=== PATIENT | female | born 1955 | race Caucasian/White ===

== ENCOUNTER 2016-10-18 11:09 | Emergency (ER) | payer MEDICAID ==
[2016-10-18] MEDS ORDERED: AMOX/CLAV 875 MG/125 MG TABLET PO STA (12:10)
[2016-10-18] MEDS ORDERED: TETANUS/DIPHTHERIA/PERTUSSIS 0.5 ML SYRINGE IM ONE ×2 (12:10→12:17)
[2016-10-18] MEDS ORDERED: AMOX/CLAV 875 MG/125 MG TABLET PO ONE (12:17)
== END 2016-10-18 12:42 | disposition home or self-care (01) ==
DX: S61.452A Open bite of left hand, initial encounter (principal); W54.0XXA Bitten by dog, initial encounter; Z23 Encounter for immunization; R03.0 Elevated blood-pressure reading, without diagnosis of hypertension; F17.200 Nicotine dependence, unspecified, uncomplicated
CPT/HCPCS: 90471; 90715; 99283; A9270

== ENCOUNTER 2019-12-26 09:08 | Outpatient (CLI) | payer MEDICAID | END 2019-12-26 09:09 | disposition home or self-care (01) | LOC: COV 09:08 | PROVIDERS: ATTEND Family Medicine | DX: R50.9 Fever, unspecified (principal); R05 Cough; R06.02 Shortness of breath; M79.10 Myalgia, unspecified site; R53.83 Other fatigue; R09.81 Nasal congestion; Z20.828 Contact with and (suspected) exposure to other viral communicable diseases ==

== ENCOUNTER 2020-04-28 08:42 | Emergency (ER) | payer MEDICAID ==
--- NOTE | 2020-04-28 08:51 | ED Physician Documentation ---
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, Tubal ligation, Hysterectomy - Present Medications Home Medications: Ambulatory Orders Medication Instructions Recorded Confirmed Amox/Clav 875/125 [Augmentin] 1 each PO Q12H #14 tablet 10/18/16 Albuterol Sulf [Ventolin Hfa 1 - 2 puffs INH Q4HR PRN #1 inhaler 12/29/19 Inhaler] predniSONE [Deltasone] 10 mg PO [id number] #42 tab 12/29/19 - Allergies Allergies/Adverse Reactions: Allergies Allergy/AdvReac Type Severity Reaction Status Date / Time droperidol Allergy Hallucinati Verified 04/28/20 08:46 ons sulfamethoxazole Allergy Edema Verified 12/29/19 08:49 [From ] trimethoprim [From ] Allergy Edema Verified 12/29/19 08:49 - Social History Does the pt smoke?: Yes Smoking Status: Current every day smoker Does the pt have substance abuse?: Yes - Immunizations Immunizations are current?: No Immunizations: TDAP >10years/unknown Results - Vitals Vitals: Oxygen O2 Source Room air
--- NOTE | 2020-04-28 08:59 | ED Physician Documentation ---
PD HPI NVD - Stated complaint Stated Complaint: N/V COUGHING - Chief complaint Chief Complaint: Abd Pain - History obtained from History obtained from: Patient - History of Present Illness Timing - onset: How many weeks ago (2) Timing - duration: Weeks (2) Timing - details: Abrupt onset, Still present (she states she had cramps and diarrhea over a dozen times the first day of it, which tapered to 3-4 times daily soft to watery without mucous. Odorous the first couple days, now not particularly overly odorous. No blood. Has dark color after Pepto.) Associated symptoms: Abdominal pain (intermittent generally crampy, mostly transverse upper and left.). No: Fever, Melena (but dark color after using Pepto), Hematochezia, Near syncope / syncope Contributing factors: No: Sick contact, Bad food, Travel, Recent antibiotics Improved by: No: Eating, Vomiting Worsened by: Eating Similar symptoms before: Has not had sx before Recently seen: Not recently seen Review of Systems Constitutional: reports: Myalgias. denies: Fever, Chills Nose: denies: Rhinorrhea / runny nose, Congestion Throat: reports: Sore throat (the past couple days) Respiratory: reports: Cough (mild cough the past couple of days.) GI: reports: Abdominal Pain, Nausea, Diarrhea. denies: Abdominal Swelling, Vomiting, Constipation, Hematemesis, Bloody / black stool Skin: denies: Rash, Lesions Neurologic: reports: Generalized weakness, Headache (intermittent pressure headaches.). denies: Focal weakness, Numbness, Near syncope PD PAST MEDICAL HISTORY - Past Medical History Cardiovascular: Hypertension (states is usually at cusp of HTN but not been on meds previously. She does get headaches intermittently. No edema. No CP. 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, Tubal ligation, Hysterectomy - Present Medications Home Medications: Ambulatory Orders Medication Instructions Recorded Confirmed Amox/Clav 875/125 [Augmentin] 1 each PO Q12H #14 tablet 10/18/16 Albuterol Sulf [Ventolin Hfa 1 - 2 puffs INH Q4HR PRN #1 inhaler 12/29/19 Inhaler] predniSONE [Deltasone] 10 mg PO [id number] #42 tab 08/01/20 Albuterol Sulf [Ventolin Hfa 1 - 2 puffs INH Q4HR PRN #1 inhaler 04/28/20 Inhaler] Azithromycin [Zithromax] 0 mg PO DAILY #6 tablet 04/28/20 Diphenoxylate/Atropine [Lomotil] 1 each PO QID #16 tablet 04/28/20 Hydrocodone/Acetaminophen [[place] 1 each PO Q6H PRN #15 tablet 04/28/20 5-325 Tablet] L.acid/L.casei/B.bif/B.kyle/Fos 1 each PO BID #20 capsule 04/28/20 [Probiotic Blend Capsule] Losartan [Cozaar] 50 mg PO DAILY #30 tablet 04/28/20 Ondansetron Odt [Zofran] 4 mg TL Q6H PRN #15 tablet 04/28/20 - Allergies Allergies/Adverse Reactions: Allergies Allergy/AdvReac Type Severity Reaction Status Date / Time droperidol Allergy Hallucinati Verified 04/28/20 08:46 ons sulfamethoxazole Allergy Edema Verified 12/29/19 08:49 [From Janra] trimethoprim [From ] Allergy Edema Verified 12/29/19 08:49 - Social History Does the pt smoke?: Yes Smoking Status: Current every day smoker Does the pt have substance abuse?: Yes - Immunizations Immunizations are current?: No Immunizations: TDAP >10years/unknown PD ED PE NORMAL - Vitals Vital signs reviewed: Yes - General General: Alert and oriented X 3, Well developed/nourished, Other (intermittently in pain, then seems comfortable. ) - HEENT HEENT: Pharynx benign - Neck Neck: Supple, no meningeal sign, No adenopathy - Cardiac Cardiac: RRR, No murmur - Respiratory Respiratory: Clear bilaterally - Abdomen Abdomen: Normal bowel sounds, Soft, Non distended, No organomegaly, Other - Back Back: No CVA TTP - Derm Derm: Normal color, Warm and dry, No rash - Extremities Extremities: No edema, No calf tenderness / cord - Neuro Neuro: Alert and oriented X 3, No motor deficit, Normal speech Results - Vitals Vitals: Vital Signs - 24 hr 04/28/20 04/28/20 04/28/20 08:46 09:11 09:58 Temperature 36.9 C Heart Rate 74 72 64 Respiratory 18 16 16 Rate Blood Pressure 180/78 H 182/94 H 156/86 H O2 Saturation 95 98 93 04/28/20 04/28/20 11:17 12:03 Temperature 36.5 C 36.9 C Heart Rate 70 75 Respiratory 18 16 Rate Blood Pressure 181/95 H 174/92 H O2 Saturation 98 95 Oxygen O2 Source Room air - Labs Labs: Laboratory Tests 04/28/20 04/28/20 04/28/20 09:37 09:37 09:37 WBC 8.2 RBC 4.93 Hgb 14.8 Hct 44.0 MCV 89.2 MCH 30.0 MCHC 33.6 RDW 11.9 L Plt Count 150 MPV 11.6 H Neut # (Auto) 6.2 Lymph # (Auto) 1.6 [place] # (Auto) 0.3 Eos # (Auto) 0.0 Baso # (Auto) 0.0 Absolute Nucleated RBC 0.00 Nucleated RBC % 0.0 ESR 4 Sodium Potassium Chloride Carbon Dioxide Anion Gap BUN Creatinine Estimated GFR (MDRD) Glucose Calcium Magnesium Total Bilirubin AST ALT Alkaline Phosphatase C-Reactive Protein Total Protein Albumin Globulin Albumin/Globulin Ratio TSH 2.76 Urine Color Urine Clarity Urine pH Ur Specific [place] Urine Protein Urine Glucose (UA) Urine Ketones Urine Occult Blood Urine Nitrite Urine Bilirubin Urine Urobilinogen Ur Leukocyte Esterase Urine RBC Urine WBC Ur Squamous Epith Cells Urine Bacteria Ur Microscopic Review Urine Culture Comments Stl C. diff Tox B Gene 04/28/20 04/28/20 04/28/20 09:37 09:40 09:40 WBC RBC Hgb Hct MCV MCH MCHC RDW Plt Count MPV Neut # (Auto) Lymph # (Auto) [place] # (Auto) Eos # (Auto) Baso # (Auto) Absolute Nucleated RBC Nucleated RBC % ESR Sodium 142 Potassium 4.1 Chloride 106 Carbon Dioxide 22 Anion Gap 14.0 H BUN 17 Creatinine 0.7 Estimated GFR (MDRD) 85 L Glucose 108 H Calcium 9.4 Magnesium 2.1 Total Bilirubin 0.7 AST 17 ALT 19 Alkaline Phosphatase 55 C-Reactive Protein < 1.0 Total Protein 7.5 Albumin 4.3 Globulin 3.2 Albumin/Globulin Ratio 1.3 TSH Urine Color YELLOW Urine Clarity CLEAR Urine pH 6.0 Ur Specific [place] 1.015 Urine Protein NEGATIVE Urine Glucose (UA) NEGATIVE Urine Ketones NEGATIVE Urine Occult Blood SMALL H Urine Nitrite NEGATIVE Urine Bilirubin NEGATIVE Urine Urobilinogen 0.2 (NORMAL) Ur Leukocyte Esterase NEGATIVE Urine RBC 0-5 Urine WBC 0-3 Ur Squamous Epith Cells MOD Squamous H Urine Bacteria Rare Ur Microscopic Review INDICATED Urine Culture Comments NOT INDICATED Stl C. diff Tox B Gene NEGATIVE PD MEDICAL DECISION MAKING - ED course Complexity details: reviewed results, considered differential, d/w patient Departure - Departure Disposition: 01 Home, Self Care Clinical Impression: Acute diarrhea High blood pressure Qualifiers: Hypertension type: unspecified Qualified Code(s): I10 - Essential (primary) hypertension Dyspnea Qualifiers: Dyspnea type: shortness of breath Qualified Code(s): R06.02 - Shortness of breath Condition: Stable Record reviewed to determine appropriate education?: Yes Instructions: ED Diet Vomiting Diarrhea Follow-Up: [facility] [Provider Group] Prescriptions: Albuterol Sulf [Ventolin Hfa Inhaler] 1 - 2 puffs INH Q4HR PRN #1 inhaler PRN Reason: Shortness Of Air/Wheezing Losartan [Cozaar] 50 mg PO DAILY #30 tablet Diphenoxylate/Atropine [Lomotil] 1 each PO QID #16 tablet Hydrocodone/Acetaminophen [[place] 5-325 Tablet] 1 each PO Q6H PRN #15 tablet PRN Reason: Pain L.acid/L.casei/B.bif/B.kyle/Fos [Probiotic Blend Capsule] 1 each PO BID #20 capsule Azithromycin [Zithromax] 0 mg PO DAILY #6 tablet Ondansetron Odt [Zofran] 4 mg TL Q6H PRN #15 tablet PRN Reason: Nausea / Vomiting Comments: Your blood pressure was elevated here initially and did come down to moderate. Since that does tend to be on the higher end of normal for you in the past, it could make sense to start a low-dose blood pressure medicine. This would be unrelated to your current diarrhea of course. For your breathing, I would suggest using the albuterol inhaler 3-4 times a day and see how you do with that as its more likely related to environmental conditions. For the diarrhea, stay well-hydrated, use antidiarrhea medicines and probiotics over the next several days to a week. Ondansetron if needed for nausea. Hydrocodone as needed for worse cramps. See how the stool culture results are over the next couple of days. If the show a specific organism, will call you to target the antibiotic choice for that. If the cultures are negative, and you are still having moderate symptoms not improved with the probiotic and antidiarrheal, and you could empirically try the azithromycin antibiotic in case of a false negative culture result. Follow-up with primary care as planned in April. Return if worsening. Discharge Date/Time: 04/28/20 12:14
[2020-04-28] MEDS ORDERED: KETOROLAC 15 MG/ML VIAL IVP STA (09:23)
[2020-04-28] MEDS ORDERED: SODIUM CHLORIDE 0.9% 1,000 ML IV STA (09:23)
[2020-04-28] MEDS ORDERED: ONDANSETRON 4 MG/2 ML VIAL IVP STA (09:23)
[2020-04-28 09:41] LABS: BASOPHILS % (AUTO) 0.4 %; EOSINOPHILS % (AUTO) 0.2 %; HGB - HEMOGLOBIN 14.8 g/dL (12.0-16.0); LYMPHOCYTES # (AUTO) 1.6 10^3/uL (1.5-3.5); LYMPHOCYTES % (AUTO) 19.9 %; MEAN CORPUSCULAR HGB CONC 33.6 g/dL (32.0-36.0); MEAN CORPUSCULAR VOLUME 89.2 fL (81.0-99.0); MEAN PLATELET VOLUME 11.6 fL (7.9-10.8); MONOCYTES # (AUTO) 0.3 10^3/uL (0.0-1.0); MONOCYTES % (AUTO) 4.1 %; NEUTROPHILS # (AUTO) 6.2 10^3/uL (1.5-6.6); PLT - PLATELET COUNT 150 10^3/uL (130-450); RED BLOOD COUNT 4.93 10^6/uL (4.20-5.40); RED CELL DISTRIBUTION WIDTH 11.9 % (12.0-15.0); WHITE BLOOD COUNT 8.2 x10^3/uL (4.8-10.8)
[2020-04-28 09:59] LABS: ALBUMIN 4.3 g/dL (3.2-5.5); ALBUMIN/GLOBULIN RATIO 1.3 (1.0-2.2); ALKALINE PHOSPHATASE 55 IU/L (42-121); ALT ALANINE AMINOTRANSFERASE 19 IU/L (10-60); AST ASPARTATE AMINOTRANSFERASE 17 IU/L (10-42); BILIRUBIN,TOTAL 0.7 mg/dL (0.2-1.0); BUN - BLOOD UREA NITROGEN 17 mg/dL (6-20); CALCIUM 9.4 mg/dL (8.5-10.3); CARBON DIOXIDE - CO2 22 mmol/L (21-32); CHLORIDE 106 mmol/L (101-111); CREATININE 0.7 mg/dL (0.4-1.0); GLUCOSE 108 mg/dL (70-100); MAGNESIUM 2.1 mg/dL (1.7-2.8); SODIUM 142 mmol/L (135-145); TOTAL PROTEIN 7.5 g/dL (6.7-8.2)
[2020-04-28 10:00] LABS: BILIRUBIN,URINE NEGATIVE (NEGATIVE); GLUCOSE, URINE (UA) NEGATIVE (NEGATIVE); KETONES,URINE (UA) NEGATIVE (NEGATIVE); LEUKOCYTE ESTERASE, URINE NEGATIVE (NEGATIVE); NITRITE,URINE NEGATIVE (NEGATIVE); OCCULT BLOOD,URINE SMALL (NEGATIVE); PROTEIN,URINE NEGATIVE (NEGATIVE); UROBILINOGEN,URINE 0.2 (NORMAL) E.U./dL (NORMAL)
[2020-04-28 10:02] LABS: CLARITY,URINE CLEAR (CLEAR)
[2020-04-28 10:11] LABS: BACTERIA,URINE Rare /HPF (None Seen); RBC,URINE 0-5 /HPF (0-5); SQUAMOUS EPITHELIAL CELL,UR MOD Squamous (<= Few)
[2020-04-28 11:04] LABS: CRP - C-REACTIVE PROTEIN < 1.0 mg/dL (0-1.0)
[2020-04-28] MEDS ORDERED: DICYCLOMINE 10 MG CAPSULE PO STA (11:18)
[2020-04-28] MEDS ORDERED: ACETAMINOPHEN 325 MG TABLET PO STA (11:18)
[2020-04-28 12:06] VITALS: BP 174/92
== END 2020-04-28 12:14 | disposition home or self-care (01) ==
LOC: ED 08:42
DX: R19.7 Diarrhea, unspecified (principal); R10.9 Unspecified abdominal pain; R11.0 Nausea; I10 Essential (primary) hypertension; J44.9 Chronic obstructive pulmonary disease, unspecified; F17.200 Nicotine dependence, unspecified, uncomplicated
CPT/HCPCS: 36415; 80053; 81001; 81599; 83735; 84443; 85025; 85651; 86140; 87493; 93005; 96361; 96374; 96375; 99284; 99285; A9270; 81003; 87045; 87046; 87086

== ENCOUNTER 2020-05-08 11:54 | Outpatient (CLI) | payer MEDICAID ==
[2020-05-08] MEDS ORDERED: IOVERSOL 320 50 ML VIAL ONE (12:06)
[2020-05-08] MEDS ORDERED: IOVERSOL 320 100 ML VIAL IVP ONE ×2 (12:06→14:28)
--- NOTE | 2020-05-08 13:50 | CT Report ---
PROCEDURE: Abdomen/Pelvis W INDICATIONS: ABD PAIN CONTRAST: IV CONTRAST: Optiray 320 ml: 100 PO CONTRAST: Optiray 320 ml50 TECHNIQUE: After the administration of intravenous contrast, 5 mm thick sections acquired from the diaphragms to the symphysis. 5 mm thick coronal and sagittal reformats were acquired. For radiation dose reducti on, the following was used: automated exposure control, adjustment of mA and/or kV according to barbara ent size. COMPARISON: None. FINDINGS: Image quality: Excellent. ABDOMEN: Lung bases: Lung bases are clear. Heart size is normal. Solid organs: Liver and spleen are normal in size and enhancement. Gallbladder is surgically absent . Biliary system is non dilated. Pancreas enhances normally. No adrenal nodules. Kidneys demonstr ate normal size and enhancement, without hydronephrosis. Peritoneum and bowel: Bowel loops demonstrate normal wall thickness and caliber. No free fluid or a ir. Large amount of fecal debris. Nodes and vessels: No retroperitoneal or mesenteric adenopathy by size criteria. Aorta and inferior vena cava are normal in size. Miscellaneous: No ventral hernias. PELVIS: Genitourinary: Bladder wall thickness is normal. Uterus is surgically absent. Miscellaneous: Small bilateral inguinal hernias containing fat. Bones: No suspicious bony lesions. No vertebral body compression fractures. Lumbar degenerative ch kassandra with at least moderate canal stenosis at L4-L5. IMPRESSION: 1. No evidence acute abdominal process. 2. Remote cholecystectomy and hysterectomy. 3. Large fecal load. 4. Small bilateral inguinal hernias containing fat. 5. Lumbar degenerative change with canal stenosis at L4-L5. Reviewed by: Manolo Pozo MD on 05/08/2020 1:48 PM [facility] Approved by: Manolo Pozo MD on 05/08/2020 1:48 PM PST Station ID: [id number]
[2020-05-08] MEDS ORDERED: IOVERSOL 320 50 ML VIAL PO ONE (14:28)
== END 2020-05-08 11:55 | disposition home or self-care (01) ==
LOC: DI 11:54
PROVIDERS: ATTEND Internal Medicine
DX: R10.9 Unspecified abdominal pain (principal); Z90.49 Acquired absence of other specified parts of digestive tract; Z90.710 Acquired absence of both cervix and uterus; K40.20 Bilateral inguinal hernia, without obstruction or gangrene, not specified as recurrent; M51.36 Other intervertebral disc degeneration, lumbar region; M48.061 Spinal stenosis, lumbar region without neurogenic claudication
CPT/HCPCS: 36415; 74177; 80053; 80074; 82728; 83690; 85025; Q9967; 81599

== ENCOUNTER 2020-05-08 15:16 | Outpatient (CLI) | payer MEDICAID ==
[2020-05-08 20:03] LABS: BASOPHILS % (AUTO) 0.5 %; EOSINOPHILS % (AUTO) 0.4 %; HGB - HEMOGLOBIN 14.1 g/dL (12.0-16.0); LYMPHOCYTES # (AUTO) 3.6 10^3/uL (1.5-3.5); LYMPHOCYTES % (AUTO) 44.1 %; MEAN CORPUSCULAR HEMOGLOBIN 30.2 pg (27.0-31.0); MEAN CORPUSCULAR VOLUME 91.4 fL (81.0-99.0); MEAN PLATELET VOLUME 12.4 fL (7.9-10.8); MONOCYTES # (AUTO) 0.3 10^3/uL (0.0-1.0); MONOCYTES % (AUTO) 3.4 %; NEUTROPHILS # (AUTO) 4.2 10^3/uL (1.5-6.6); NEUTROPHILS % (AUTO) 51.4 %; PLT - PLATELET COUNT 172 10^3/uL (130-450); RED BLOOD COUNT 4.67 10^6/uL (4.20-5.40); RED CELL DISTRIBUTION WIDTH 11.9 % (12.0-15.0); WHITE BLOOD COUNT 8.1 x10^3/uL (4.8-10.8)
[2020-05-08 20:11] LABS: ALBUMIN 4.3 g/dL (3.2-5.5); ALBUMIN/GLOBULIN RATIO 1.5 (1.0-2.2); BILIRUBIN,TOTAL 0.8 mg/dL (0.2-1.0); CALCIUM 9.3 mg/dL (8.5-10.3); CREATININE 0.6 mg/dL (0.4-1.0); TOTAL PROTEIN 7.2 g/dL (6.7-8.2)
== END 2020-05-08 15:17 | disposition home or self-care (01) ==
LOC: LAB.S 15:16
PROVIDERS: ATTEND Internal Medicine
DX: R10.9 Unspecified abdominal pain (principal)
CPT/HCPCS: 36415; 80053; 81599; 82728; 83690; 85025

== ENCOUNTER 2020-06-20 14:52 | Outpatient (CLI) | payer MEDICAID | END 2020-06-20 14:53 | disposition home or self-care (01) | LOC: COV 14:52 | PROVIDERS: ATTEND Surgery | DX: Z01.812 Encounter for preprocedural laboratory examination (principal); K21.9 Gastro-esophageal reflux disease without esophagitis; R10.13 Epigastric pain; R13.10 Dysphagia, unspecified; Z12.11 Encounter for screening for malignant neoplasm of colon; Z20.822 Contact with and (suspected) exposure to COVID-19 ==

== ENCOUNTER 2020-06-25 08:43 | Day surgery (SDC) | payer MEDICAID ==
[2020-06-25] MEDS ORDERED: LACTATED RINGERS 1,000 ML IV ONE ×2 (09:26→10:50)
[2020-06-25] MEDS ORDERED: MIDAZOLAM 2 MG/2 ML VIAL ONE ×4 (09:54→10:40)
[2020-06-25] MEDS ORDERED: fentaNYL 250 MCG/5 ML VIAL ONE (09:54)
[2020-06-25] MEDS ORDERED: LIDO GARGLE 30 ML BOTTLE ONE (09:56)
[2020-06-25] MEDS ORDERED: LIDO GARGLE 30 ML BOTTLE PO ONE (09:57)
[2020-06-25 11:16] VITALS: BP 146/81
== END 2020-06-25 08:44 | disposition home or self-care (01) ==
LOC: SDS 08:43
PROVIDERS: ATTEND Surgery
PROC: 0DB48ZX Excision of Esophagogastric Junction, Via Natural or Artificial Opening Endoscopic, Diagnostic (ICD-10-PCS; 2020-06-25)
PROC: 0DB68ZX Excision of Stomach, Via Natural or Artificial Opening Endoscopic, Diagnostic (ICD-10-PCS; 2020-06-25)
PROC: 0DBM8ZZ Excision of Descending Colon, Via Natural or Artificial Opening Endoscopic (ICD-10-PCS; principal; 2020-06-25 09:45)
PROC: 0DBN8ZZ Excision of Sigmoid Colon, Via Natural or Artificial Opening Endoscopic (ICD-10-PCS; 2020-06-25 09:45)
DX: D12.4 Benign neoplasm of descending colon (principal); K63.5 Polyp of colon; K29.50 Unspecified chronic gastritis without bleeding; K21.00 Gastro-esophageal reflux disease with esophagitis, without bleeding; J44.9 Chronic obstructive pulmonary disease, unspecified; F41.9 Anxiety disorder, unspecified; Z79.51 Long term (current) use of inhaled steroids; Z79.899 Other long term (current) drug therapy; Z87.891 Personal history of nicotine dependence
CPT/HCPCS: 43239; 45380; A9270; J3010; J7120

== ENCOUNTER 2020-11-09 12:30 | Outpatient (CLI) | payer MEDICAID | END 2020-11-09 23:59 | disposition home or self-care (01) | LOC: LAB.S 12:30 | PROVIDERS: ATTEND Physician Assistant Medical | DX: R30.0 Dysuria (principal) | CPT/HCPCS: 87086 ==

== ENCOUNTER 2020-12-29 08:00 | Outpatient (CLI) | payer MEDICAID ==
--- NOTE | 2020-12-29 11:34 | XRAY Report ---
PROCEDURE: Lumbar Spine 2 View INDICATIONS: BACK PAIN TECHNIQUE: 3 views of the lumbar spine were acquired. COMPARISON: CT abdomen/pelvis 05/08/2020 FINDINGS: Bones: 5 [id number] vertebrae are present. There is normal bony alignment. No vertebral body compression fractures. No suspicious bony lesions. Soft tissues: Overlying bowel gas pattern is normal. No suspicious soft tissue calcifications. IMPRESSION: There is a generalized degenerative disc disease pattern, with relative sparing at the L 1-L2 level. No subluxation is associated, no compression fracture is seen. Facet osteoarthritis becom es more prominent from L3 through S1, with likelihood of spinal and foraminal stenosis at L4-5 and es pecially L5-S1. No trauma found. Reviewed by: Devin Barney MD on 12/29/2020 11:33 AM PDT Approved by: Devin Barney MD on 12/29/2020 11:33 AM PDT Station ID: [id number]
== END 2020-12-29 23:59 | disposition home or self-care (01) ==
LOC: DI.S 08:00
PROVIDERS: ATTEND Physician Assistant Medical
DX: M51.36 Other intervertebral disc degeneration, lumbar region (principal); M47.816 Spondylosis without myelopathy or radiculopathy, lumbar region; M47.817 Spondylosis without myelopathy or radiculopathy, lumbosacral region

== ENCOUNTER 2021-02-05 16:07 | Outpatient (CLI) | payer MEDICAID | END 2021-02-05 16:08 | disposition home or self-care (01) | LOC: COV 16:07 | PROVIDERS: ATTEND Family Medicine | DX: R50.9 Fever, unspecified (principal); R05 Cough; R19.7 Diarrhea, unspecified; R09.81 Nasal congestion; J34.89 Other specified disorders of nose and nasal sinuses; Z20.822 Contact with and (suspected) exposure to COVID-19 ==

== ENCOUNTER 2021-02-19 12:36 | Outpatient (CLI) | payer MEDICAID ==
--- NOTE | 2021-02-19 19:47 | MRI Report ---
PROCEDURE: Lumbar Spine W/O INDICATIONS: LUMBAR RADICULITIS, LUMBAR SPINAL STENOSIS TECHNIQUE: Noncontrast sagittal T1 spin echo and T2 fast echo, sagittal STIR, axial T1 and T2 fast spin echo thr ough the lumbar spine. In cases with scoliosis, additional coronal T2 fast spin echo may be performe d. COMPARISON: None. FINDINGS: Image quality: Excellent. Alignment and Curvature: There is normal bony alignment. Bone Marrow: Degenerative endplate changes noted in the lumbar spine, particularly at L2-3. Spinal Cord: Conus medullaris terminates at the L1 level. Visualized cord demonstrates normal signa l and size. Paraspinous Soft Tissues: No paravertebral masses. L1-2: Normal in appearance. L2-3: Moderate disc space narrowing and circumferential disc bulge with hypertrophic facet joints and ligamentum flavum laxity result in moderate central stenosis. Moderate bilateral foraminal stenos is noted. L3-4: Disc space narrowing and circumferential disc bulge combines with hypertrophic facet joints results in moderate central stenosis. Moderate bilateral foraminal stenosis. L4-L5: Disc space narrowing and broad-based a circumferential disc bulge combines with hypertrophic facet joints results in moderate central stenosis, effacing both lateral recesses. There is moderate bilateral foraminal stenosis present. L5-S1: Moderate disc space narrowing and circumferential disc bulge and hypertrophic facet joint re sults in mild central stenosis. Moderate bilateral foraminal stenosis present. IMPRESSION: 1. Degenerative disc disease and arthropathy resulting in varying degrees of central and foraminal st enosis including moderate central stenosis at L2-3, L3-4 and L4-5 Reviewed by: Abraham Ha MD on 02/19/2021 6:46 PM [facility] Approved by: Abraham Ha MD on 02/19/2021 6:46 PM [facility] Station ID: [id number]
== END 2021-02-19 12:37 | disposition home or self-care (01) ==
LOC: DI 12:36
PROVIDERS: ATTEND Internal Medicine
DX: M47.816 Spondylosis without myelopathy or radiculopathy, lumbar region (principal); M47.817 Spondylosis without myelopathy or radiculopathy, lumbosacral region; M51.36 Other intervertebral disc degeneration, lumbar region; M48.061 Spinal stenosis, lumbar region without neurogenic claudication; M51.37 Other intervertebral disc degeneration, lumbosacral region; M48.07 Spinal stenosis, lumbosacral region

== ENCOUNTER 2021-07-22 11:52 | Outpatient (CLI) | payer MEDICAID ==
[2021-07-22 15:23] LABS: BASOPHILS # (AUTO) 0.1 10^3/uL (0.0-0.1); BASOPHILS % (AUTO) 0.6 %; EOSINOPHILS # (AUTO) 0.1 10^3/uL (0.0-0.7); EOSINOPHILS % (AUTO) 1.1 %; LYMPHOCYTES # (AUTO) 3.1 10^3/uL (1.5-3.5); MEAN CORPUSCULAR HEMOGLOBIN 30.4 pg (27.0-31.0); MEAN CORPUSCULAR HGB CONC 32.6 g/dL (32.0-36.0); MEAN CORPUSCULAR VOLUME 93.3 fL (81.0-99.0); MEAN PLATELET VOLUME 12.3 fL (7.9-10.8); MONOCYTES # (AUTO) 0.8 10^3/uL (0.0-1.0); NEUTROPHILS # (AUTO) 4.4 10^3/uL (1.5-6.6); NEUTROPHILS % (AUTO) 52.1 %; PLT - PLATELET COUNT 188 10^3/uL (130-450); RED BLOOD COUNT 4.61 10^6/uL (4.20-5.40); RED CELL DISTRIBUTION WIDTH 12.3 % (12.0-15.0); WHITE BLOOD COUNT 8.4 x10^3/uL (4.8-10.8)
[2021-07-22 16:09] LABS: ALBUMIN 3.9 g/dL (3.2-5.5); ALBUMIN/GLOBULIN RATIO 1.3 (1.0-2.2); ALKALINE PHOSPHATASE 55 IU/L (42-121); ALT ALANINE AMINOTRANSFERASE 20 IU/L (10-60); AST ASPARTATE AMINOTRANSFERASE 17 IU/L (10-42); BILIRUBIN,TOTAL 0.4 mg/dL (0.2-1.0); BUN - BLOOD UREA NITROGEN 19 mg/dL (6-20); CALCIUM 9.2 mg/dL (8.5-10.3); CARBON DIOXIDE - CO2 27 mmol/L (21-32); CHLORIDE 104 mmol/L (101-111); CHOL/HDL RATIO 3.4 (<4.4); CHOLESTEROL 186 mg/dL; CREATININE 0.9 mg/dL (0.4-1.0); GFR - MDRD 63 (>89); GLUCOSE 85 mg/dL (70-100); HDL CHOLESTEROL 55 mg/dL; LDL CHOLESTEROL,CALCULATED 107 mg/dL; LDL/HDL RATIO 1.9 (<4.4); POTASSIUM 4.4 mmol/L (3.5-5.0); SODIUM 142 mmol/L (135-145); TOTAL PROTEIN 6.9 g/dL (6.7-8.2); TRIGLYCERIDES 120 mg/dL; VLDL CHOLESTEROL 24 mg/dL
[2021-07-22 16:38] LABS: THYROID STIMULATING HORMONE 2.1 uIU/mL (0.34-5.60)
== END 2021-07-22 11:53 | disposition home or self-care (01) ==
LOC: LAB.S 11:52
PROVIDERS: ATTEND Registered Nurse
DX: Z01.812 Encounter for preprocedural laboratory examination (principal); I10 Essential (primary) hypertension; Z79.899 Other long term (current) drug therapy
CPT/HCPCS: 36415; 80053; 80061; 83721; 84443; 85025